=== PATIENT | male | born 1935 | race Two or more races ===

== ENCOUNTER 2019-04-28 13:52 | Inpatient (IN) | payer OTHER, MEDICAID ==
[~2019-04-28] VITALS: Ht 165.1 cm; Wt 62.6 kg
--- NOTE | 2019-04-28 13:55 | NUR ---
EKG IN PROGRESS BY RABIA CHEN
--- NOTE | 2019-04-28 14:13 | NUR ---
PT BROUGHT IN BY [facility] FOR COMPLAINT OF CHEST PAIN AND COUGH X 2 DAYS. UPON ARRIVAL TO ED PT. IS AWAKE AND ALERT. NON ITALIAN SPEAKING. PT IS ABLE TO STATE "PAIN" AND TOUCHES L AND R SIDE OF CHEST. FACIAL GRIMMACE NOTED WITH PALPATION OF CHEST AT SITE WHERE PT. POINTED. PT TO ROOM 2TB. EKG COMPLETED. PLACED ON CM. IV STARTED TO LAC. PER MEDICS FAMILY ON WAY TO HOSPITAL. CONTINUE TO MONITOR.
[2019-04-28 14:34] LABS: BASOPHIL % 0.2 % (0-2); PLATELET COUNT 171 x10^3mcL (130-400)
[2019-04-28 14:36] LABS: RED CELL DISTRIBUTION WIDTH 16.3 % (11.5-14.5)
[2019-04-28 14:44] LABS: CALCIUM 8.7 mg/dL (8.5-10.1); CARBON DIOXIDE 30.9 mmol/L (21-32); CHLORIDE SERUM 96 mmol/L (98-107); CREATININE SERUM 0.8 mg/dL (0.7-1.3); GLUCOSE SERUM 123 mg/dL (74-106); POTASSIUM SERUM 4.3 mmol/L (3.5-5.1); SODIUM SERUM 134 mmol/L (136-145)
[2019-04-28 14:48] LABS: ALKALINE PHOSPHATASE 108 U/L (46-116); ALT/SGPT 71 U/L (16-63); AST/SGOT 49 U/L (15-37); BILIRUBIN TOTAL 0.8 mg/dL (0.20-1.00); CHOLESTEROL 138 mg/dL (<200); LIPASE 196 IU/L (73-393); TOTAL PROTEIN, SERUM 7.2 g/dL (6.4-8.2); TRIGLYCERIDES 114 mg/dL (<150)
[2019-04-28 14:55] LABS: ALBUMIN 3.1 g/dL (3.4-5.0); CHOLESTEROL/HDL RATIO 6.9; HDL CHOLESTEROL 20 mg/dL (40-60)
--- NOTE | 2019-04-28 15:00 | NUR ---
REPORT RECEVIED FROM JORDON VENEGAS, TO ASSUME CARE OF PT.
[2019-04-28 15:03] LABS: T3 TOTAL 0.77 ng/mL
[2019-04-28 15:38] LABS: microscopic required? NO
--- NOTE | 2019-04-28 15:40 | NUR ---
PER FAMILY OF PT, STS HE HAS HAD A FEVER FOR ONE WEEK AND COUGH FOR ONE WEEK. PER FAMILY MEMBER PT HAS ALSO FELT DIZZY/HEADACHE. PT HAS SOME PAIN IN CHEST WHEN ASKED WHERE HE FEELS PAIN. VSS. RESP E/U. WILL CONTINUE TO MONITOR.
[2019-04-28 15:42] LABS: FREE T4 0.98 ng/dL (0.76-1.46); FREE THYROXINE INDEX 2.5 ug/dL (1.4-4.5); T4(THYROXINE) 7.4 ug/dL (4.7-13.3)
[2019-04-28 15:44] LABS: urine erythrocyte NEGATIVE (NEGATIVE)
[2019-04-28] MEDS ORDERED: NEU300 PO (15:50)
[2019-04-28] MEDS ORDERED: TOPROL XL25 MG PO (15:50)
[2019-04-28] MEDS ORDERED: ASPIR 8181 MG PO (15:50)
--- NOTE | 2019-04-28 16:37 | NUR ---
REPORT GIVEN TO KUNAL VENEGAS TO ASSUME CARE OF PT.
--- NOTE | 2019-04-28 17:03 | NUR ---
RECEIVED PT FROM ED VIA [employer], CAME IN DUE TO CHEST PAIN. AAOX4. DENIES HEADACHE/DIZZINESS. ABLE TO FOLLOW COMMANDS. NO SOB NOTED, LUNG SOUNDS DIMINISHED ON AUSCULTATION, O2 SAT=99% ON 2LPM/NC. W/ NON-PRODUCTIVE COUGH. STATED THAT HE HAS CHEST PAIN ONLY WHEN COUGHING. DENIES CHEST PAIN/PRESSURE, SR ON THE MONITOR. DENIES ABDOMINAL DISCOMFORT. BOWEL SOUNDS ACTIVE. W/ BROWN DISCOLORATIONS ON BILATERAL FEET, SINGING TEACHER. IV SITE PATENT AND INTACT. SIDE RAILS UXP2. CALL LIGHT ON REACH. HOB ELEVATED AT 30 DEG. ENDORSED TO PRIMARY NURSE KUNAL FOR CONTINUITY OF CARE
[2019-04-28 17:26] VITALS: BP 159/86
[2019-04-28 17:32] VITALS: Ht 165.1 cm; Wt 62.6 kg
[2019-04-28 17:59] LABS: AMPHETAMINE QUAL UR NONE DETECTED (See below)
--- NOTE | 2019-04-28 18:41 | NUR ---
NO ACUTE CHANGES AT THIS TIME. NO ACUTE RESP DISTRESS OR SOB NOTED. REMAINS ON 2L NC FOR COMFORT/ FAMILY AT BEDSIDE. PER FAMILY MEMBER PT IS NOT IN PAIN AT THIS TIME. WILL ENDORSE TO INCOMING R.N.
--- NOTE | 2019-04-28 19:15 | NUR ---
CARE ASSUMED FROM OUTGOING RN. BEDSIDE REPORT RECEIVED. PT UNDERGOING US: CAROTID AT THIS TIME. NO ACUTE DISTRESS NOTED. ON TELE# 4 READING SR 94. EVEN AND [id number] RESPIRATION ON 2LNC. US TECH AT BEDSIDE. CALL LIGHT WITHIN REACH. WILL CONTINUE TO MONITOR.
[2019-04-28 19:53] VITALS: BP 156/81
--- NOTE | 2019-04-28 23:02 | NUR ---
PT WENT DOWN TO RADIOLOGY ACCOMPANIED BY RADIOLOGY TECHS FOR CT HEAD. PT IN NO ACUTE DISTRESS.
--- NOTE | 2019-04-28 23:15 | NUR ---
PT BACK FROM RADIOLOGY. NO ACUTE DISTRESS NOTED. PT TOLERATED PROCEDURE WELL. EVEN AND UNLABORED RESPIRATIONS ON 2LNC. ON TELE#4 READING SR 69. IVL PATENT AND INTACT. BED IN LOWEST POSITION. SIDE RAILS UPX2. CALL LIGHT WITHIN REACH. WILL CONTINUE TO MONITOR.
--- NOTE | 2019-04-29 00:19 | NUR ---
PT ASLEEP COMFORTABLY IN BED. NO ACUTE DISTRESS NOTED. EVEN AND UNLABORED RESPIRATIONS ON 2LNC. ON TELE#4 READING SR 65. IVL PATENT AND INTACT. BED IN LOWEST POSITION. SIDE RAILS UPX2. CALL LIGHT WITHIN REACH. WILL CONTINUE TO MONITOR.
[2019-04-29 05:45] VITALS: BP 130/76
--- NOTE | 2019-04-29 06:46 | NUR ---
PT SLEPT COMFORTABLY IN INTERVALS THROUGHOUT THE SHIFT. NO ACUTE CHANGES NOTED. EVEN AND UNLABORED RESPIRATIONS ON 2LNC WITH OCC DRY COUGH. IVL PATENT AND INTACT. ON TELE# 4 READING NSR. ALL NEEDS TENDED TO AND MET. ALL SCHEDULED MEDICATION GIVEN. C/O N/V MEDICATED PER EMAR. BED IN LOWEST POSITION. SIDE RAILS UPX2. CALL LIGHT WITHIN REACH. WILL ENDORSE TO ONCOMING SHIFT.
[2019-04-29 06:58] LABS: BASOPHIL % 0.2 % (0-2); PLATELET COUNT 199 x10^3mcL (130-400)
[2019-04-29 07:21] LABS: CALCIUM 9.5 mg/dL (8.5-10.1); CARBON DIOXIDE 31.3 mmol/L (21-32); CHLORIDE SERUM 97 mmol/L (98-107); CREATININE SERUM 0.8 mg/dL (0.7-1.3); GLUCOSE SERUM 97 mg/dL (74-106); MAGNESIUM 2.1 mg/dL (1.8-2.4); PHOSPHOROUS 3.4 mg/dL (2.5-4.9); POTASSIUM SERUM 3.8 mmol/L (3.5-5.1); SODIUM SERUM 138 mmol/L (136-145)
--- NOTE | 2019-04-29 07:30 | NUR ---
PT ENDORSE TO ME THIS MORNING, LAYING IN BED RESTING. AA/O X4. BISHNU SPK. BREATHING EVEN AND UNLABORED ON 2L NC/ NO ACUTE RESP DISTRESS OR SOB NOTED. TELE 4 SR NOTED HR 82 NOTED/ NO SIGNS OF CP OR PRESSURE. BOWEL SOUNDS ACTIVE IN ALL FOUR QUADS/ NO SIGNS OF N/V NOTED. VOIDS FREELY. GEN WEAKNESS NOTED. KNOWS TO CALL FOR ASSIST. CALL LIGHT IN REACH. IV TO THE LAC INTACT AND PATENT/ HEPLOCKED. X2 SIDE RAILS UP/ WILL CONTINUE TO MONITOR.
[2019-04-29 07:41] VITALS: BP 151/73
[2019-04-29 11:45] VITALS: BP 106/55
--- NOTE | 2019-04-29 14:25 | NUR ---
PT SITTING UP IN BED RESTING. FAMILY AT BEDSIDE/ ASSISTED WITH TRANSLATION, PT DENIES ANY CP OR PRESSURE/ DISCOMFORT. TOLERATED ABOUT 20% OF LUNCH. WILL CONTINUE TO MONITOR.
--- NOTE | 2019-04-29 16:09 | NUR ---
PT LAYING IN BED RESTING, SON AT BEDSIDE. C/O GEN BODY DISCOMFORT, MEDICATED PER EMAR. WILL CONTINUE TO MONITOR.
[2019-04-29 16:22] VITALS: BP 145/65
--- NOTE | 2019-04-29 18:22 | NUR ---
PT C/O N/V . NOTICED PULLED IV OUT TO THE LFA/ CATHETER TIP INTACT. NEW IV TO THE RFA 22G/ INTACT AND PATENT/ HEPLOCKED. MEDICATED PER EMAR FOR N/V. WILL CONTINUE TO MONITOR.
--- NOTE | 2019-04-29 18:29 | NUR ---
NO ACUTE CHANGES AT THIS TIME, NO ACUTE RESP DISTRESS OR SOB NOTED. DENIES ANY CP OR PRESSURE. NEW IV TO THE RFA INTACT AND PATENT/ HEPLOCKED. WILL ENDORSE TO INCOMING RN.
--- NOTE | 2019-04-29 19:15 | NUR ---
CARE ASSUMED FROM OUTGOING RN. PT RESTING COMFORTABLY IN BED. DAUGHTER AT BEDSIDE, UPDATED HER ON PT POC BY DAY SHIFT RN. ALL QUESTIONS AND CONCERNS ATTENDED TO. NO ACUTE DISTRESS NOTED. EVEN AND UNLABORED RESPIRATIONS ON RA, NO C/O SOB. ON TELE#4 READING SR 82. IVL INTACT. BED IN LOWEST POSITION. SIDE RAILS UPX2. CALL LIGHT WITHIN REACH. WILL CONTINUE TO MONITOR.
[2019-04-29 19:24] VITALS: BP 134/66
--- NOTE | 2019-04-30 00:20 | NUR ---
PT ASLEEP COMFORTABLY IN BED. NO ACUTE DISTRESS NOTED. EVEN AND UNLABORED RESPIRATIONS ON RA. ON TELE# 4 READING NSR. IVL INTACT. BED IN LOWEST POSITION. SIDE RAILS UPX2. CALL LIGHT WITHIN REACH. WILL CONTINUE TO MONITOR.
[2019-04-30 04:38] VITALS: BP 153/87
--- NOTE | 2019-04-30 06:21 | NUR ---
PT SLEPT COMFORTABLY IN INTERVALS THROUGHOUT THE SHIFT. NO ACUTE CHANGES NOTED. ALL NEEDS TENDED TO AND MET. ALL SCHEDULED MEDICATIONS GIVEN. EVEN AND UNLABORED RESPIRATIONS ON RA WITH O2 SAT AT 95%. ON TELE# 4 READING SR 87. IVL PATENT AND INTACT. C/O N/V, HEADACHE AND TEMP MEDICATED PER EMAR. BED IN LOWEST POSITION. SIDE RAILS UPX2. CALL LIGHT WITHIN REACH. WILL ENDORSE TO ONCOMING SHIFT.
[2019-04-30 06:52] LABS: PLATELET COUNT 156 x10^3mcL (130-400)
[2019-04-30 07:01] LABS: BASOPHIL % 0 % (0-2); RED CELL DISTRIBUTION WIDTH 17.2 % (11.5-14.5)
[2019-04-30 07:12] LABS: CALCIUM 8.4 mg/dL (8.5-10.1); CARBON DIOXIDE 28.8 mmol/L (21-32); CHLORIDE SERUM 95 mmol/L (98-107); CREATININE SERUM 0.8 mg/dL (0.7-1.3); GLUCOSE SERUM 117 mg/dL (74-106); MAGNESIUM 1.7 mg/dL (1.8-2.4); PHOSPHOROUS 2.8 mg/dL (2.5-4.9); POTASSIUM SERUM 3.7 mmol/L (3.5-5.1); SODIUM SERUM 132 mmol/L (136-145)
--- NOTE | 2019-04-30 07:45 | NUR ---
AT 0705 - RECEIVED PATIENT FROM NIGHT NURSE. AWAKE, APPEARS ORIENTED. MONITOR SHOWING SINUS RHYTHM; RATE 80'S. RESPIRATIONS REGULAR. ON RA. REPROTS A NON-PRODUCTIVE COUGH. IV IN RFA SALINE LOKCED. AT 0730 - PATIENT DWCLINED BREAKFAST; REPORTS SOME NAUSEA. WAS MEDICATED WITH ZOFRAN 2 HR AGO. WILL CONTINUE TO MONITOR.
[2019-04-30 09:03] VITALS: BP 107/74
--- NOTE | 2019-04-30 10:10 | NUR ---
PATIENT'S FAMILY VISITING. SPOKE WITH PATIENT AND FAMILY REGARDING CURRENT PLAN OF CARE. PATIENT REPORTS REDUCED APETITE BUT NO C/O NAUSEA AT THIS TIME. ENCOURAGED PATIENT TO KEEP UP PO LIQUID INTAKE.
[2019-04-30 13:28] VITALS: BP 141/75
--- NOTE | 2019-04-30 14:39 | NUR ---
AT 1350 - TEMP 101.7 TEMPORAL/ 100.2 ORAL TEMP. PATIENT GIVEN TAYLANOL PER EMAR. ENCOURAGED ORAL LIQUID INTAKE. PATIENT AMBULATED TO BATHROOM AND BACK TO BED. PATIENT'S GRAND-DAUGHTER AT BEDSIDE. UPDATED ON CURRENT PLAN OF CARE INCLUDING PLAN TO TRANSFER TO SNF FOR CONTINUATION OF IV ANTIBIOTICS AND PT. SEEN BY MAKSIM FAUSTIN WHO SPOKE WITH PATIENT ABOUT CHOICE OF SNF [facility] FOR TOMORROW.
--- NOTE | 2019-04-30 15:46 | NUR ---
AT 1400 - STATUS CHANGED TO MED-SURG. PATINT TAKEN OFF CARDIAC MONTIORING.
--- NOTE | 2019-04-30 16:11 | NUR ---
TEMP NOW 98.7 IV IN RFA INFILTRATED AND RESITED IN SYD. TODAY'S DOSE OF IV LEVAQUIN NOW IN PROGRESS.
[2019-04-30 16:32] VITALS: BP 127/69
--- NOTE | 2019-04-30 16:44 | NUR ---
PATIENT AMBULATES TO BATHROOM FOR TOILET NEEDS WITH ASSISTANCE.
--- NOTE | 2019-04-30 17:26 | NUR ---
PATIENT C/O NO BM FOR SEVERAL DAYS. GIVEN PRN COLACE PER EMAR. FAMILY AT BEDSIDE.
--- NOTE | 2019-04-30 18:41 | NUR ---
RECEIVED WORD FROM MAKSIM FAUSTIN. PATIENT TO DISCHARGE TO [facility]. FAMILY WILL PROVIDE TRANSPORT. PATIENT REMAINS AWAKE, ALERT AND ORIENTED. NO C/O PAIN, DIZZINESS OR NAUSEA. AMBULATES TO BATHROOM WITH ASSISTANCE. HAS BEEN ABLE TO TAKE SOME FOOD PO THIS AFTERNOON. REMAINS AFEBRILE AT THIS TIME. WILL ENDORSE CARE TO NIGHT NURSE.
--- NOTE | 2019-04-30 19:35 | NUR ---
RECEIVED PATIENT IN THE BATHROOM , PT CLAIMED WITH BM AT THIS TIME . ASSISTED BACK TO BED, PLACED CALL LIGHT WITHIN REACH, BED LOCKED AND IN LOWEST POSITION FOR SAFETY. ON ROOM AIR, WITH DIMINSIHED BREATH SOUNDS ON BLL, NON-PRODUCTIVE COUGH. IV ACCESS ON THE SYD G#22 INTACT . NO SWELLING NOTED. WILL CONTINUE TO MONITOR.
--- NOTE | 2019-05-01 00:01 | NUR ---
[id number] IN BED, WITH EYES CLOSED, NO FACIAL GRIAMCING NOTED. RESPIRATION EVEN AND UNLABORED. NO S/S OF ACUTE RESPIRATORY DISTRESS.
--- NOTE | 2019-05-01 02:23 | NUR ---
PT FEELS NUASEATED, ZOFRAN 4MG IVP PRN MEDICATION. BED LOCKED AND IN LOWEST POSITION OFR SAFETY. ASSISTED TO BATHROOM FOR PERSONLA NEEDS. KEPT CLEAN AND DRY.
[2019-05-01 04:55] VITALS: BP 126/71
[2019-05-01 06:05] LABS: PLATELET COUNT 160 x10^3mcL (130-400)
--- NOTE | 2019-05-01 06:06 | NUR ---
ALL DUE MEDICATIONS GIVEN AND WELL TOLERATED. NO ADVERSE REACTION NOTED FROM [facility]ER[facility]. MAINTAINED ON AIRBORNE ISOLATION DUE LAURIE MELO.ALL NEEDS ATTENDED,
--- NOTE | 2019-05-01 06:10 | NUR ---
APPARENTLY COMFORTABLE , CALM IN BED. [facility] ASSISTED TO BATHROOM , HAD BM X1 MODERATE AMOUNT BROWNISH COLOR SOFT IN COSISTENCY. KEPT CLEAN AND DRY.
--- NOTE | 2019-05-01 06:12 | NUR ---
NO FURTHER NAUSEA NOTED. TOLERATED ORAL FLUIDS.
[2019-05-01 07:02] LABS: RED CELL DISTRIBUTION WIDTH 16.3 % (11.5-14.5)
--- NOTE | 2019-05-01 07:32 | NUR ---
RECEIVED PATIENT FROM NIGHT NURSE. RESTING WITH EYES CLOSED. RESPIRATIONS REGULAR.
--- NOTE | 2019-05-01 07:49 | NUR ---
PATIENT NOW AWAKE, ALERT AND APPEARS ORIENTED. NO C/O NAUSEA BUT DOES NOT WANT TO EAT BREAKFAST AT THIS TIME.
[2019-05-01 07:50] LABS: CALCIUM 8.7 mg/dL (8.5-10.1); CARBON DIOXIDE 28.1 mmol/L (21-32); CHLORIDE SERUM 94 mmol/L (98-107); CREATININE SERUM 0.8 mg/dL (0.7-1.3); GLUCOSE SERUM 121 mg/dL (74-106); POTASSIUM SERUM 3.5 mmol/L (3.5-5.1); SODIUM SERUM 131 mmol/L (136-145)
[2019-05-01 09:17] VITALS: BP 152/83
[2019-05-01 09:38] LABS: BAND NEUTROPHIL 1 % (0-10); BASOPHIL 0 % (0-2); MONOCYTE 8 % (0-7); PLATELET MORPHOLOGY PLATELETS NORMAL; SEGMENTED NEUTROPHILS 85 % (37-75); ovalocyte/elliptocyte 1+; rbc morphology (normal/abnorm) ABNORMAL (NORMAL); schistocyte (helmet cell) 1+
--- NOTE | 2019-05-01 09:38 | NUR ---
AT 0855 - SPOKE WITH PATIENT USING [facility] TELEPHONE AUTO COLLISION REPAIR INSTRUCTOR ID # [id number] PATIENT C/O FEELING COLD; CHILLS FOR THE WHOLE NIGHT. (CURRENT TEMP 99.1) PATIENT ALSO EXPRESSED WISH TO GO HOME INSTEAD OF TO REHAB [facility] FOR CONTINUATION OF IV ANTIBIOTICS. AT 0915 - PATIENT'S FAMILY MEMBER/GRAND-DAUGHTER AT BEDSIDE. EXPLAINED TO HER THAT ARRANGEMENTS HAD BEEN MADE YESTERDAY WITH PATIENT, DAUGHTER AND CASE MANAGEMENT FOR PATIENT TO DC TO [facility] WITH FAMILY PROVIDING TRANSPORT. SHE WILL SPEAK WITH HER AUNT. PATIENT PROVIDED WITH WARM BLANKET.
[2019-05-01 09:39] LABS: acanthocyte (spur cell) 1+; burr cell (echinocyte) 1+
[2019-05-01] MEDS ORDERED: LIPI10 PO (09:46)
[2019-05-01] MEDS ORDERED: LEV500PM IV (09:47)
[2019-05-01 11:00] VITALS: BP 124/75
--- NOTE | 2019-05-01 11:03 | NUR ---
PATIENT C/O PALPITATIONS. BP 124/75 HR 78 REGULAR. O2 SAT 95% ON ROOM AIR. CURRENT TEMP 100.1 PATIENT PROVIDED WITH REASSURANCE. SPOKE WITH LESLEY ZAMORANO. MADE HER AWARE OF PATIENT'S COMPLAINT AND VS. WAITING FOR FAMILY TO COME IN.
[2019-05-01 13:25] VITALS: BP 138/72
--- NOTE | 2019-05-01 13:36 | NUR ---
PATIENT RESTING QUIETLY. RESPIRATIONS REGULAR. NO SOB NOTED. NO C/O PAIN.
--- NOTE | 2019-05-01 15:30 | NUR ---
MENTALLY RETARDED TEACHER ZAMORANO CALLED AND MADE AWARE THAT [facility] AT THIS TIME HAD NO AVAILABLE BEDS. THAT THEY HAD A BED AVAILABLE YESTERDAY AND MIGHT HAVE ONE TOMORROW BUT NOT TODAY. MENTALLY RETARDED TEACHER REQUESTED FOR CM TO BE NOTIFIED. ATTENDING NURSE AWARE, [facility]IVITIES CONCIERGE CM WILL BE NOTIFIED.
--- NOTE | 2019-05-01 15:35 | NUR ---
AT 1500 - PATIENT'S DAUGHTER, TYLOR AT BEDSIDE. PATIENT C/O CHILLS. CURRENT TEMP 100.6 MEDICATED WITH TYLANOL PER EMAR. CALLED [facility] TO CO-ORDINATE PATIENT'S TRANSFER THERE. SPOKE WITH NICOLA WHO SAID THAT THEY DO NOT HAVE A BED FOR PATIENT. SHE WILL SPEAK WITH THEIR ADMITTING AND CALL BACK. AT 1515 - RECEIVED CALL BACK FROM NICOLA AT [facility]. THEY DEFINITELLY DO NOT HAVE A BED FOR PATIENT, TODAY. THEY ACKNOWLEDGE THAT PATIENT WAS ACCEPTED YESTERDAY, FOR TRANSFER TODAY BUT THEY DO NOT HAVE AN AVAILABLE BED. ALSO PER CASE MANAGEMENT NOTES, PATIENT WAS TO GO INTO BED 60, BUT [facility] SAYS THAT THEY ONLY HAVE 59 BEDS. AT 1530 - CHARGE NURSE, CHRISTIANE MADE AWARE OF BED UNAVAILABILITY. SHE CALLED AND NOTIFIED CARD PLACER ZAMORANO. SHE WILL ALSO BE IN TOUCH WITH CASE MANAGEMENT. PATIENT HAS AMBULATED TO BATHROOM AND BACK TO BED WITH MINIMAL ASSISTANCE. IV LEVAQUIN CURRENTLY IN PROGRESS.
[2019-05-01 16:46] VITALS: BP 129/71
--- NOTE | 2019-05-01 16:52 | NUR ---
SPOKE WITH FRANCIS FRENCH, MADE AWARE OF SITUATION WITH [facility]. INSTRUCTED TO F/U WITH [facility] TOMORROW TO CHECK IF BED WILL BE AVAILABLE. TO BE FOLLOWED UP ON FRIDAY ON OTHER FACILITIES [facility] DOES NOT HAVE A BED TOMORROW. ATTENDING NURSE NOTIFIED.
--- NOTE | 2019-05-01 18:35 | NUR ---
RESTING QUIETLY. VSS. AFEBRILE AT PRESENT. PATIENT HAS REDUCED APPETITE. TAKING PO LIQUIDS BUT REFUSING MOST FOOD. AMBULATES TO BATHROOM FOR TOILET NEDS WITH MINIMAL ASSISTANCE. WILL ENDORSE CARE TO NIGHT NURSE.
--- NOTE | 2019-05-01 19:26 | NUR ---
RECEIVED AWAKE IN BED, LYING COMFORTABLEY. FAMILY AT BEDSIDE VERY SUPPORTIVE OF PATIENT'S CURRENT PLAN OF CARE. SKIN WARM AND DRY TO TOUCH. RESPIRATION EVEN ANS UNABORED. DENIES ANY PAIN/DISCOMFORT. IV ACCESS AT THE SYD INRACR AND CLWAR. NO SWELLING NOTED. INSTRUCTED TO CALL FOR ANY ASSISTANCE NEEDED AND VERBALIZED UNDERSTANDING. WILL CONTINUE TO MONITOR.
[2019-05-01 20:30] VITALS: BP 149/87
--- NOTE | 2019-05-01 21:30 | NUR ---
C/O NAUSEA, ZOFRAN 4MG IVP PRN MEDICATION. ASSISTED TO BATHROOM FOR PERSONAL NEEDS. KEPT CLEAN AND DRY.
--- NOTE | 2019-05-02 00:01 | NUR ---
ABLE TO SLEEP AT SHORT INTERVALS. TOLERATED ORAL FLUIDS . NO FURTHER NAUSEA REPORTED.
--- NOTE | 2019-05-02 04:51 | NUR ---
PT SCREAMINGF, CLAIMING WITH GENERALIZED SEVERE BODY PAIN ON SCALE 10/10, MORPHINE 2MG IVP PRN MEDICATION. ASSISTED TO BATHROOM FOR PERSONAL NEEDS.
[2019-05-02 05:13] VITALS: BP 152/83
--- NOTE | 2019-05-02 06:04 | NUR ---
RESTING QUIETLY IN BED. NO S/S OF PAIN/DISCOMFORT. CALL LIGHT WITHIM=N REACH. BED LOCKED AND IN LOWEST POSITION FOR SAFETY.
--- NOTE | 2019-05-02 07:41 | NUR ---
RECEIVED PATIENT FROM NIGHT NURSE. AWAKE, ALERT. APPEARS ORIENTED. NO C/O PAIN. PATIENT REQUESTED A CHECK OF HIS TEMPERATURE. TEMP 97.8 AT PRESENT. O2 SAT 93% ON ROOM AIR. RESPIRATIONS REGULAR. DIMINISHED BREATH SOUNDS BLL. PATIENT ENCOURAGED TO EAT SOME BREAKFAST. IV IN SYD SALINE LOCKED.
[2019-05-02 08:36] VITALS: BP 133/76
--- NOTE | 2019-05-02 10:40 | NUR ---
RECEIVED CALL FROM SHENG AT [facility]. THEY HAVE AVAILABLE BED FOR PATIENT TODAY. WE WILL ADMINISTER TODAY'S DOSE OF IV LEVAQUIN BEFORE PATIENT GOES TO [facility] THIS AFTERNOON. SPOKE WITH PATIENT'S DAUGHTER LANDON, PER PHONE. EXPLAINED SITUATION TO HER. FAMILY WILL BE ABLE TO COME AND TAKE PATIENT TO [facility] THIS AFTERNOON BETWEEN [phone].
--- NOTE | 2019-05-02 11:50 | NUR ---
PATIENT SITTING IN CHAIR. APPEARS COMFORTABLE.
--- NOTE | 2019-05-02 12:12 | NUR ---
Initial Nutrition Assessment Dx: Syncope PMHx: HTN, Hypercholesterolemia PSHx: None Labs: (05/01) Na 131L, BG 121H, AST 49H, ALT 71H, WBC 12.1H Meds: Colace, Levaquin, Lipitor, Morphine, Neurontin, Nitrostat, [place], Tylenol, Zofran Diet: Cardiac PO intake since admission: Widely variable, consuming between 25-50% x 7 days. Sometimes, pt. only consumes fluids and small amount of food. Meeting <75% estimated needs. Ht: 65" (165 cm) Wt: 138# (62.6 kg) BMI: 23 (WNL) IBW: 136# %IBW: 101% UBW: 140# Age: 83 y/o elderly male Food Allergies: NKFA Skin: Intact Nav: 19 Edema: None GI: Last BM: x 1 (04/30) Per H and P, pt. admitted with worsening chest pain x 1 week associated with x 2 episodes of emesis and feeling near syncope prior to admission. Plans in place for transfer to [facility] yesterday, but no bed was available per nursing notes. Pt. has poor to fair appetite with reports of feeling nauseated. Consumes mostly fluids and very little solid food. Noted with snacks and beverages from home at bedside. Problem with: N/V/D/C: +nausea Problems with: Chewing: N Swallowing: N Current appetite: Poor Recent wt change: None %wt change: N/A Vitamin/Supplement use: None Special diet at home: Regular Physical activity: None d/t advanced age and acute illness Nutrition education given (specify specific nutrition education and handout given): Declined diet education at this time/[facility] handouts not provided during visit. Encouraged pt. to consume small amounts of food at a time and focus on protein rich foods as tolerated. Estimated Nutritional Needs Based on body weight (62.6 kg) Energy: 3055-4219 kcal/day (25-30 kcal/kg for geriatric needs) Protein: 63-75 g/day (1.0-1.2 g/kg for geriatric needs) Fluid: 8740-1990 mL/day (1 mL/kcal) Nutrition Diagnosis: 1. Inadequate PO intake r/t decreased appetite and acute illness AEB documented PO intake meeting <75% estimated kcal and protein needs. Intervention 1. Continue Regular diet as ordered and as tolerated. Add Ensure Enlive TID for supplementation to add an additional 1080 kcal and 60 g protein for poor PO intake. Monitor/Evaluate Goal: PO intake at least 75% of estimated needs Monitor: PO intake, Labs, GI function F/U in 3-5 days as moderate risk (05/05-05/07)
--- NOTE | 2019-05-02 12:16 | NUR ---
Intervention 1. Continue Regular diet as ordered and as tolerated. Add Ensure Enlive TID for supplementation to add an additional 1080 kcal and 60 g protein for poor PO intake.
[2019-05-02 13:02] VITALS: BP 133/76
--- NOTE | 2019-05-02 15:33 | NUR ---
IV LEVAQUIN IN PROGRESS. PATIENT REQUESTED CHECK OF TEMP. CURRENT TEMP ORALLY WAS 99.9. PATIENT C/O HEADACHE. GIVEN TYLANOL PER EMAR. NOW RESTING ON BED.
--- NOTE | 2019-05-02 16:32 | NUR ---
AT 1610 - PATIENT'S DAUGHTER AT BEDSIDE. COPIES OF PRINTED DISCHARGE INSTRUCTIONS GIVEN AND EXPLAINED TO PATIENT'S DAUGHTER. PACKET FOR [facility] GIVEN TO DAUGHTER. SHE IS PROVIDING TRANSPORT. PATIENT LEFT WITH IV IN SYD, SALINE LOCKED. AT 1625 - REPORT GIVEN TO [id number] AT [facility]. PATIENT DISCHARGED TO [facility] WITH DAUGHTER. TAKEN TO CAR IN WHEELCHAIR BY DAMARIS.
--- NOTE | 2019-05-03 17:54 | NUR ---
PHYSICAL THERAPY DAILY NOTES CO-SIGN All documentation done by the Deployment Engineer for 05/01/19 has been reviewed. I agree with the documentation. Reviewed/Co-Signed by: Dante Sharma PT Documentation Done by:MARI MORRIS SIGN BUILDER LATE ENTRY FOR 05/01/19; POC REVIEWED W/ SIGN BUILDER.
== END 2019-05-02 16:25 | DRG 871 ==
LOC: ED 13:52 → DU 16:18
PROVIDERS: Specialist; ADMIT General Practice
DX: A41.9 Sepsis, unspecified organism (principal); J18.9 Pneumonia, unspecified organism; E44.1 Mild protein-calorie malnutrition; R55 Syncope and collapse; I10 Essential (primary) hypertension; E87.8 Other disorders of electrolyte and fluid balance, not elsewhere classified; R74.0 Nonspecific elevation of levels of transaminase and lactic acid dehydrogenase [LDH]; D63.8 Anemia in other chronic diseases classified elsewhere; E78.5 Hyperlipidemia, unspecified; Z79.82 Long term (current) use of aspirin; Z68.24 Body mass index [BMI] 24.0-24.9, adult
CPT/HCPCS: 83880; 84439; 97110-GP; 97116-GP; 97530-GP; G0378; J1956; J2270; J2405; J7030; J7050; Q0092